=== PATIENT | female | born 1970 | race Two or more races ===

== ENCOUNTER 2022-04-13 00:21 | Emergency (ER) | payer SELFPAY ==
[~2022-04-13] VITALS: Ht 165.1 cm; Wt 63.5 kg
--- NOTE | 2022-04-13 00:57 | NUR ---
[id number] FROM HOME C/O ANXIETY ATTACK XFEW HOURS. HX OF ANXIETY. 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 PT BREATHING EVEN AND UNLABORED V/S [facility] AMBULATORY WITH STEADY GAIT. PLACED IN ER BED 2 ON MONITOR.
--- NOTE | 2022-04-13 00:58 | NUR ---
ER DESIGN ENGINEERING TECHNICIAN @ BEDSIDE
[2022-04-13 01:03] LABS: BASOPHILS # (AUTO) 0.1 K/uL (0.0-0.2); BASOPHILS % (AUTO) 1.2 % (0.0-2.0); HEMATOCRIT 36 % (33-45); HEMOGLOBIN 11.8 g/dL (11.5-14.8); LYMPHOCYTES # (AUTO) 2.5 K/uL (0.8-4.8); LYMPHOCYTES % (AUTO) 36.6 % (20.0-44.0); MEAN CORPUSCULAR HGB CONC 33 g/dl (31.0-36.0); MEAN CORPUSCULAR VOLUME 87 fL (82-100); MONOCYTES # (AUTO) 0.6 K/uL (0.1-1.30); MONOCYTES % (AUTO) 9.1 % (2.0-12.0); NEUTROPHILS # (AUTO) 3.5 K/uL (1.8-8.9); NEUTROPHILS % (AUTO) 51.1 % (43.0-81.0); PLATELET COUNT (AUTO) 241 K/uL (150-450); RED BLOOD CELL COUNT(AUTO) 4.08 MIL/uL (4.0-5.2); WHITE BLOOD COUNT (AUTO) 6.8 K/uL (4.3-11.0)
--- NOTE | 2022-04-13 01:04 | NUR ---
X-RAY AT BEDSIDE
[2022-04-13 01:32] LABS: CALCIUM, SERUM 8.7 mg/dL (8.5-10.1); CARBON DIOXIDE 28 mmol/L (21-32); CHLORIDE 103 mmol/L (98-107); CREATININE 0.8 mg/dL (0.6-1.3); GLUCOSE 109 mg/dL (74-106); POTASSIUM 3.9 mmol/L (3.5-5.1); SODIUM SERUM 136 mmol/L (136-145); UREA NITROGEN, BLOOD 15 mg/dL (7-18)
--- NOTE | 2022-04-13 04:46 | NUR ---
Patient discharged to home in stable condition. Written and verbal after care instructions given. Patient verbalizes understanding of instruction.
[2022-04-13 04:47] VITALS: BP 122/65
== END 2022-04-13 04:47 | disposition home or self-care (01) ==
LOC: ER 00:23
DX: R06.00 Dyspnea, unspecified (principal); F41.9 Anxiety disorder, unspecified; Z88.8 Allergy status to other drugs, medicaments and biological substances
CPT/HCPCS: 36415; 71045-TC; 80048-TC; 84484-TC; 85025-TC